=== PATIENT | male | born 1935 | race Caucasian/White ===

== ENCOUNTER 2018-02-24 09:08 | Inpatient (IN) | payer BC ==
[2018-02-24 09:22] LABS: ADD MAN DIFF? NO
[2018-02-24] MEDS: VANCOMYCIN 1 GM (PMX) 250 ML IVPB (09:23)
[2018-02-24] MEDS: CEFEPIME 2GM/50 ML (PMX) 50 ML IVPB (09:23)
[2018-02-24] MEDS: SODIUM CHLORIDE 0.9% 1L BAG IV* (09:23)
[2018-02-24 09:28] LABS: WHITE BLOOD COUNT 9.8 10^3/ul (4.8-10.8)
[2018-02-24 09:28] LABS: BASOPHIL # 0.1 10^3/ul (0.0-0.1); BASOPHILS % 0.5 % (0.0-2.0); EOSINOPHILS # 0.1 10^3/ul (0.0-0.5); EOSINOPHILS % 0.6 % (0.0-7.0); HEMATOCRIT 40.7 % (42.0-52.0); HEMOGLOBIN 13.5 g/dl (14.0-18.0); LYMPHOCYTES % 9.9 % (15.0-51.0); MEAN CORPUSCULAR HGB CONC 33.2 g/dl (32.0-37.0); MEAN CORPUSCULAR VOLUME 93.3 fl (82.0-101.0); MEAN PLATELET VOLUME 10.7 fl (7.4-10.4); MONOCYTE # 1.1 10^3/ul (0.3-0.9); MONOCYTES % 10.9 % (0.0-11.0); NEUTROPHIL # 7.6 10^3/ul (1.6-7.5); NEUTROPHILS % 77.8 % (39.0-77.0); PLATELET COUNT 173 10^3/UL (140-415); RED BLOOD COUNT 4.36 10^6/ul (4.70-6.10); RED CELL DISTRIBUTION WIDTH 12.4 % (11.5-14.5)
[2018-02-24 09:42] LABS: ALANINE AMINOTRANSFERASE 24 IU/L (13-69); ALBUMIN/GLOBULIN RATIO 1.05; ALKALINE PHOSPHATASE 78 IU/L (42-121); AMYLASE 65 U/L (11-123); ANION GAP 12 (5-13); ASPARTATE AMINO TRANSFERASE 36 IU/L (15-46); BILIRUBIN,INDIRECT 1.5 mg/dl (0-1.1); BILIRUBIN,TOTAL 1.5 mg/dl (0.2-1.3); BLOOD UREA NITROGEN 35 mg/dl (7-20); CARBON DIOXIDE 22 mmol/L (21-31); CHLORIDE 105 mmol/L (97-110); CREATININE 1.37 mg/dl (0.61-1.24); GLUCOSE 155 mg/dl (70-220); LIPASE 41 U/L (23-300); POTASSIUM 4.2 mmol/L (3.5-5.1); SODIUM 139 mmol/L (135-144); TOTAL PROTEIN 7.8 g/dl (6.1-8.1)
[2018-02-24 09:44] LABS: LACTIC ACID 2.2 mmol/L (0.5-2.0)
[2018-02-24 09:50] LABS: INR 1.18; PROTIME 15.2 Sec (11.9-14.9); PT RATIO 1.2
[2018-02-24 09:51] LABS: PARTIAL THROMBOPLASTIN TIME 32.8 Sec (23.0-35.0)
[2018-02-24 09:53] LABS: TROPONIN-I 0.018 ng/ml (0.000-0.120)
[2018-02-24] MEDS: ALBUTEROL 0.083% (NEB) 2.5 MG/3 ML AMP NEB ×2 (09:53→12:34)
[2018-02-24] MEDS: IPRATROPIUM (NEB) 0.5 MG/2.5 ML AMP NEB ×3 (09:53→20:12)
[2018-02-24] MEDS: BENZONATATE 100 MG CAP PO (10:06)
[2018-02-24] MEDS: ACETAMINOPHEN 500 MG TAB PO (10:38)
[2018-02-24] MEDS: IBUPROFEN 800 MG TAB PO (10:38)
[2018-02-24] MEDS ORDERED: NACL 0.9% 3 ML SYG IV (12:30)
[2018-02-24] MEDS ORDERED: ACETAMINOPHEN 325 MG TAB PO (12:30)
[2018-02-24] MEDS ORDERED: MAGNESIUM HYDROXIDE 30ML CUP PO (12:30)
[2018-02-24] MEDS ORDERED: ONDANSETRON 4 MG INJ IV ×2 (12:30)
[2018-02-24] MEDS: GUAIFENESIN/DM (SR) TAB PO ×2 (13:00→22:38)
[2018-02-24] MEDS: ARTIFICIAL TEARS 15 ML OPH BOTH EYES (13:46)
[2018-02-24] MEDS: SOD CHLORIDE 0.9% 1,000 ML IV (13:46)
[2018-02-24 14:40] LABS: LACTIC ACID 2.8 mmol/L (0.5-2.0)
[2018-02-24] MEDS: ALBUTEROL 0.083% (NEB) 2.5 MG/3 ML AMP HHN ×2 (14:40→20:12)
[2018-02-24 18:15] LABS: LACTIC ACID 3.1 mmol/L (0.5-2.0)
[2018-02-24] MEDS: AZITHROMYCIN 500 MG in SOD CHLORIDE 0.9% 250 ML IVPB (18:25)
[2018-02-24] MEDS: ATORVASTATIN 20 MG TAB PO (22:38)
[2018-02-24] MEDS: DOXAZOSIN 4 MG TAB PO (22:39)
[2018-02-24] MEDS: SOD CHLORIDE 0.9% 500 ML IV (22:39)
[2018-02-25] MEDS: CEFEPIME 2GM/50 ML (PMX) 50 ML IVPB ×3 (00:37→21:17)
[2018-02-25] MEDS: SOD CHLORIDE 0.9% 1,000 ML IV ×2 (01:30→14:31)
[2018-02-25 06:21] LABS: LACTIC ACID 0.9 mmol/L (0.5-2.0)
[2018-02-25 08:20] LABS: ADD MAN DIFF? NO
[2018-02-25 08:23] LABS: WHITE BLOOD COUNT 7.5 10^3/ul (4.8-10.8)
[2018-02-25 08:23] LABS: BASOPHILS % 0.3 % (0.0-2.0); EOSINOPHILS # 0.2 10^3/ul (0.0-0.5); EOSINOPHILS % 2.1 % (0.0-7.0); HEMATOCRIT 36.1 % (42.0-52.0); HEMOGLOBIN 11.8 g/dl (14.0-18.0); LYMPHOCYTES # 0.8 10^3/ul (0.8-2.9); LYMPHOCYTES % 10.7 % (15.0-51.0); MEAN CORPUSCULAR HGB CONC 32.7 g/dl (32.0-37.0); MEAN CORPUSCULAR VOLUME 94.8 fl (82.0-101.0); MEAN PLATELET VOLUME 10.9 fl (7.4-10.4); MONOCYTE # 0.7 10^3/ul (0.3-0.9); MONOCYTES % 9.4 % (0.0-11.0); NEUTROPHIL # 5.8 10^3/ul (1.6-7.5); NEUTROPHILS % 77.1 % (39.0-77.0); PLATELET COUNT 163 10^3/UL (140-415); RED BLOOD COUNT 3.81 10^6/ul (4.70-6.10); RED CELL DISTRIBUTION WIDTH 12.6 % (11.5-14.5)
[2018-02-25 08:42] LABS: ANION GAP 7 (5-13); BLOOD UREA NITROGEN 25 mg/dl (7-20); CALCIUM 8.3 mg/dl (8.4-10.2); CARBON DIOXIDE 22 mmol/L (21-31); CHLORIDE 113 mmol/L (97-110); CREATININE 0.87 mg/dl (0.61-1.24); GLUCOSE 97 mg/dl (70-220); SODIUM 142 mmol/L (135-144)
[2018-02-25] MEDS: BENZONATATE 100 MG CAP PO (08:54)
[2018-02-25] MEDS: AZITHROMYCIN 250 MG TAB PO (08:54)
[2018-02-25] MEDS: ASPIRIN (EC) 81 MG TAB PO (08:54)
[2018-02-25] MEDS: GUAIFENESIN/DM (SR) TAB PO ×2 (08:54→21:04)
[2018-02-25] MEDS: ALBUTEROL 0.083% (NEB) 2.5 MG/3 ML AMP HHN ×3 (09:10→19:37)
[2018-02-25] MEDS: ENOXAPARIN 30 MG/0.3 ML SYG SC (09:22)
[2018-02-25] MEDS: ARTIFICIAL TEARS 15 ML OPH BOTH EYES (14:31)
[2018-02-25] MEDS: FINASTERIDE 5 MG TAB PO (14:31)
[2018-02-25] MEDS ORDERED: TAMSULOSIN (SR) 0.4 MG CAP PO (21:00)
[2018-02-25] MEDS: ATORVASTATIN 20 MG TAB PO (21:04)
[2018-02-25] MEDS: DOXAZOSIN 4 MG TAB PO (21:04)
[2018-02-25] MEDS: CEPASTAT LOZENGE MT (21:04)
[2018-02-26] MEDS: DOCUSATE SODIUM 100 MG CAP PO ×2 (00:13→21:49)
[2018-02-26] MEDS: GUAIFENESIN/DM 5ML CUP PO (00:23)
[2018-02-26 05:06] LABS: ADD MAN DIFF? NO
[2018-02-26 05:11] LABS: BASOPHILS % 0.4 % (0.0-2.0); EOSINOPHILS # 0.3 10^3/ul (0.0-0.5); HEMATOCRIT 37.6 % (42.0-52.0); HEMOGLOBIN 12.5 g/dl (14.0-18.0); LYMPHOCYTES # 0.9 10^3/ul (0.8-2.9); MEAN CORPUSCULAR HEMOGLOBIN 30.9 pg (29.0-33.0); MEAN CORPUSCULAR HGB CONC 33.2 g/dl (32.0-37.0); MEAN CORPUSCULAR VOLUME 92.8 fl (82.0-101.0); MEAN PLATELET VOLUME 10.7 fl (7.4-10.4); MONOCYTE # 0.8 10^3/ul (0.3-0.9); MONOCYTES % 7.8 % (0.0-11.0); NEUTROPHIL # 7.6 10^3/ul (1.6-7.5); PLATELET COUNT 185 10^3/UL (140-415); RED BLOOD COUNT 4.05 10^6/ul (4.70-6.10); RED CELL DISTRIBUTION WIDTH 12.5 % (11.5-14.5)
[2018-02-26 05:11] LABS: WHITE BLOOD COUNT 9.6 10^3/ul (4.8-10.8)
[2018-02-26 05:44] LABS: ANION GAP 7 (5-13); BLOOD UREA NITROGEN 17 mg/dl (7-20); CALCIUM 8.6 mg/dl (8.4-10.2); CARBON DIOXIDE 22 mmol/L (21-31); CHLORIDE 112 mmol/L (97-110); CREATININE 0.79 mg/dl (0.61-1.24); GLUCOSE 118 mg/dl (70-220); POTASSIUM 4.1 mmol/L (3.5-5.1); SODIUM 141 mmol/L (135-144)
[2018-02-26] MEDS: CEPASTAT LOZENGE MT ×2 (06:14→15:31)
[2018-02-26] MEDS: BENZONATATE 100 MG CAP PO ×2 (06:17→15:31)
[2018-02-26] MEDS: ALBUTEROL 0.083% (NEB) 2.5 MG/3 ML AMP HHN ×3 (07:44→19:47)
[2018-02-26] MEDS: ASPIRIN (EC) 81 MG TAB PO (09:12)
[2018-02-26] MEDS: FINASTERIDE 5 MG TAB PO (09:12)
[2018-02-26] MEDS: GUAIFENESIN/DM (SR) TAB PO ×2 (09:12→21:49)
[2018-02-26] MEDS: ENOXAPARIN 30 MG/0.3 ML SYG SC (09:29)
[2018-02-26] MEDS: CEFEPIME 2GM/50 ML (PMX) 50 ML IVPB ×2 (09:33→21:49)
[2018-02-26] MEDS: ARTIFICIAL TEARS 15 ML OPH BOTH EYES (15:04)
[2018-02-26] MEDS ORDERED: CIPROFLOXACIN 0.3% 2.5 ML OPH BOTH EYES (21:00)
[2018-02-26] MEDS: ATORVASTATIN 20 MG TAB PO (21:49)
[2018-02-26] MEDS: DOXAZOSIN 4 MG TAB PO (21:50)
[2018-02-27] MEDS: CIPROFLOXACIN 0.3% 5 ML OPH BOTH EYES ×6 (00:12→21:33)
[2018-02-27 05:35] LABS: ADD MAN DIFF? NO
[2018-02-27 05:41] LABS: BASOPHILS % 0.5 % (0.0-2.0); EOSINOPHILS # 0.3 10^3/ul (0.0-0.5); EOSINOPHILS % 3.8 % (0.0-7.0); HEMATOCRIT 36.1 % (42.0-52.0); LYMPHOCYTES # 1.2 10^3/ul (0.8-2.9); MEAN CORPUSCULAR HEMOGLOBIN 30.6 pg (29.0-33.0); MEAN CORPUSCULAR HGB CONC 33.2 g/dl (32.0-37.0); MEAN CORPUSCULAR VOLUME 92.1 fl (82.0-101.0); MEAN PLATELET VOLUME 11.6 fl (7.4-10.4); MONOCYTE # 0.7 10^3/ul (0.3-0.9); NEUTROPHIL # 6.2 10^3/ul (1.6-7.5); NEUTROPHILS % 72.9 % (39.0-77.0); PLATELET COUNT 187 10^3/UL (140-415); RED BLOOD COUNT 3.92 10^6/ul (4.70-6.10); RED CELL DISTRIBUTION WIDTH 12.9 % (11.5-14.5)
[2018-02-27 05:41] LABS: WHITE BLOOD COUNT 8.5 10^3/ul (4.8-10.8)
[2018-02-27 06:01] LABS: ANION GAP 7 (5-13); BLOOD UREA NITROGEN 15 mg/dl (7-20); CALCIUM 8.6 mg/dl (8.4-10.2); CARBON DIOXIDE 25 mmol/L (21-31); CHLORIDE 109 mmol/L (97-110); CREATININE 0.75 mg/dl (0.61-1.24); GLUCOSE 107 mg/dl (70-220); POTASSIUM 3.6 mmol/L (3.5-5.1); SODIUM 141 mmol/L (135-144)
[2018-02-27] MEDS: ALBUTEROL 0.083% (NEB) 2.5 MG/3 ML AMP HHN ×3 (08:00→23:39)
[2018-02-27] MEDS: GUAIFENESIN/DM (SR) TAB PO ×2 (08:51→21:32)
[2018-02-27] MEDS: FINASTERIDE 5 MG TAB PO (08:51)
[2018-02-27] MEDS: ASPIRIN (EC) 81 MG TAB PO (08:51)
[2018-02-27] MEDS: ENOXAPARIN 30 MG/0.3 ML SYG SC (08:59)
[2018-02-27] MEDS: CEPASTAT LOZENGE MT (09:05)
[2018-02-27] MEDS: BENZONATATE 100 MG CAP PO ×2 (09:05→16:43)
[2018-02-27] MEDS: CEFEPIME 2GM/50 ML (PMX) 50 ML IVPB ×2 (09:06→21:33)
[2018-02-27] MEDS: ARTIFICIAL TEARS 15 ML OPH BOTH EYES (14:06)
[2018-02-27] MEDS ORDERED: ALBUTEROL/IPRATROPIUM (NEB) 3 ML AMP HHN (18:00)
[2018-02-27] MEDS: ATORVASTATIN 20 MG TAB PO (21:32)
[2018-02-27] MEDS: DOXAZOSIN 4 MG TAB PO (21:32)
[2018-02-27] MEDS: IPRATROPIUM (NEB) 0.5 MG/2.5 ML AMP NEB (23:39)
[2018-02-28] MEDS: CIPROFLOXACIN 0.3% 5 ML OPH BOTH EYES ×5 (01:33→17:29)
[2018-02-28] MEDS: ACETAMINOPHEN 325 MG TAB PO ×2 (03:39→14:49)
[2018-02-28 05:54] LABS: ADD MAN DIFF? NO
[2018-02-28 05:58] LABS: BASOPHILS % 0.5 % (0.0-2.0); EOSINOPHILS # 0.1 10^3/ul (0.0-0.5); HEMATOCRIT 35.3 % (42.0-52.0); HEMOGLOBIN 11.7 g/dl (14.0-18.0); LYMPHOCYTES % 11.1 % (15.0-51.0); MEAN CORPUSCULAR HEMOGLOBIN 30.5 pg (29.0-33.0); MEAN CORPUSCULAR HGB CONC 33.1 g/dl (32.0-37.0); MEAN CORPUSCULAR VOLUME 91.9 fl (82.0-101.0); MEAN PLATELET VOLUME 11.1 fl (7.4-10.4); MONOCYTE # 0.6 10^3/ul (0.3-0.9); MONOCYTES % 6.4 % (0.0-11.0); NEUTROPHIL # 6.9 10^3/ul (1.6-7.5); NEUTROPHILS % 79.8 % (39.0-77.0); PLATELET COUNT 205 10^3/UL (140-415); RED BLOOD COUNT 3.84 10^6/ul (4.70-6.10); RED CELL DISTRIBUTION WIDTH 12.8 % (11.5-14.5)
[2018-02-28 05:58] LABS: WHITE BLOOD COUNT 8.6 10^3/ul (4.8-10.8)
[2018-02-28 06:48] LABS: ANION GAP 8 (5-13); BLOOD UREA NITROGEN 25 mg/dl (7-20); CALCIUM 8.5 mg/dl (8.4-10.2); CARBON DIOXIDE 24 mmol/L (21-31); CHLORIDE 107 mmol/L (97-110); GLUCOSE 132 mg/dl (70-220); SODIUM 139 mmol/L (135-144)
[2018-02-28] MEDS: GUAIFENESIN/DM (SR) TAB PO (09:28)
[2018-02-28] MEDS: FINASTERIDE 5 MG TAB PO (09:28)
[2018-02-28] MEDS: ASPIRIN (EC) 81 MG TAB PO (09:28)
[2018-02-28] MEDS: CEFEPIME 2GM/50 ML (PMX) 50 ML IVPB (09:28)
[2018-02-28] MEDS: FLUTICASONE/VILANTEROL 100-25 INH (09:29)
[2018-02-28] MEDS: ALBUTEROL 0.083% (NEB) 2.5 MG/3 ML AMP HHN ×2 (09:46→16:36)
[2018-02-28] MEDS: ENOXAPARIN 30 MG/0.3 ML SYG SC (09:49)
[2018-02-28] MEDS: IPRATROPIUM (NEB) 0.5 MG/2.5 ML AMP NEB ×2 (13:25→16:36)
[2018-02-28] MEDS: ARTIFICIAL TEARS 15 ML OPH BOTH EYES (13:42)
== END 2018-02-28 18:25 | disposition home health service (06) | DRG 871 ==
LOC: E/R 09:08 → 6WM 12:10
PROVIDERS: Hospitalist
DX: A41.9 Sepsis, unspecified organism (principal); J18.9 Pneumonia, unspecified organism; E87.2 Acidosis; N13.8 Other obstructive and reflux uropathy; J44.0 Chronic obstructive pulmonary disease with (acute) lower respiratory infection; N40.1 Benign prostatic hyperplasia with lower urinary tract symptoms; R33.8 Other retention of urine; J84.10 Pulmonary fibrosis, unspecified; I10 Essential (primary) hypertension; E78.5 Hyperlipidemia, unspecified; Z87.891 Personal history of nicotine dependence; G47.33 Obstructive sleep apnea (adult) (pediatric)
CPT/HCPCS: 71045; 71250; 80048; 80053; 82150; 83605; 83690; 83735; 84484; 85025; 85610; 85730; 87040; 93005; 94640; 94664; 96365; 96366; 96375; 99291-25

== ENCOUNTER 2018-03-11 09:21 | Emergency (ER) | payer BC ==
[2018-03-11 10:02] LABS: ADD MAN DIFF? NO
[2018-03-11 10:04] LABS: WHITE BLOOD COUNT 6.8 10^3/ul (4.8-10.8)
[2018-03-11 10:04] LABS: BASOPHIL # 0.1 10^3/ul (0.0-0.1); BASOPHILS % 0.7 % (0.0-2.0); EOSINOPHILS # 0.2 10^3/ul (0.0-0.5); EOSINOPHILS % 3.2 % (0.0-7.0); HEMATOCRIT 36.8 % (42.0-52.0); LYMPHOCYTES # 1.3 10^3/ul (0.8-2.9); LYMPHOCYTES % 18.6 % (15.0-51.0); MEAN CORPUSCULAR HEMOGLOBIN 30.6 pg (29.0-33.0); MEAN CORPUSCULAR HGB CONC 32.6 g/dl (32.0-37.0); MEAN CORPUSCULAR VOLUME 93.9 fl (82.0-101.0); MEAN PLATELET VOLUME 9.8 fl (7.4-10.4); MONOCYTE # 0.5 10^3/ul (0.3-0.9); NEUTROPHIL # 4.7 10^3/ul (1.6-7.5); NEUTROPHILS % 69.4 % (39.0-77.0); PLATELET COUNT 242 10^3/UL (140-415); RED BLOOD COUNT 3.92 10^6/ul (4.70-6.10)
[2018-03-11 10:08] LABS: URINE BLOOD (Dip) POC 3+ (NEGATIVE); URINE KETONES (Dip) POC 2+ (NEGATIVE); URINE LEUKOCYTE EST (Dip) POC 3+ (NEGATIVE); URINE NITRITE (Dip) POC Positive (NEGATIVE); URINE TOTAL PROTEIN POC 3+ (NEGATIVE)
[2018-03-11 10:08] LABS: URINE PH (Dip) POC 8.5 (5.0-8.5)
[2018-03-11 10:23] LABS: PROTIME 13.3 Sec (11.9-14.9)
[2018-03-11 10:29] LABS: ANION GAP 5 (5-13); BLOOD UREA NITROGEN 24 mg/dl (7-20); CALCIUM 8.9 mg/dl (8.4-10.2); CARBON DIOXIDE 29 mmol/L (21-31); CHLORIDE 108 mmol/L (97-110); CREATININE 0.89 mg/dl (0.61-1.24); GLUCOSE 113 mg/dl (70-220); POTASSIUM 4.4 mmol/L (3.5-5.1); SODIUM 142 mmol/L (135-144)
[2018-03-11 10:43] LABS: ADD UMIC YES; UR ASCORBIC ACID NEGATIVE (NEGATIVE); UR BILIRUBIN (Dip) NEGATIVE (NEGATIVE); UR BLOOD (Dip) 3+ mg/dL (NEGATIVE); UR CLARITY TURBID (CLEAR); UR COLOR RED (YELLOW); UR GLUCOSE (Dip) 1+ mg/dL (NEGATIVE); UR KETONES (Dip) TRACE mg/dL (NEGATIVE); UR LEUKOCYTE ESTERASE (Dip) NEGATIVE Leu/ul (NEGATIVE); UR NITRITE (Dip) NEGATIVE (NEGATIVE); UR TOTAL PROTEIN (Dip) 3+ mg/dl (NEGATIVE); UR UROBILINOGEN (Dip) NEGATIVE (NEGATIVE)
[2018-03-11 10:50] LABS: URINE RBCS >200 /HPF (0)
== END 2018-03-11 11:02 | disposition home or self-care (01) ==
LOC: E/R 11:02
DX: T83.098A Other mechanical complication of other urinary catheter, initial encounter (principal); I71.4 Abdominal aortic aneurysm, without rupture; N39.0 Urinary tract infection, site not specified; I10 Essential (primary) hypertension; J44.9 Chronic obstructive pulmonary disease, unspecified; Y73.2 Prosthetic and other implants, materials and accessory gastroenterology and urology devices associated with adverse incidents; Z79.82 Long term (current) use of aspirin
CPT/HCPCS: 74176; 80048; 81001; 81003; 85025; 85610; 99284-25

== ENCOUNTER 2018-03-17 10:30 | Emergency (ER) | payer BC | END 2018-03-17 13:18 | disposition home or self-care (01) | LOC: E/R 10:30 | DX: R33.9 Retention of urine, unspecified (principal); I10 Essential (primary) hypertension; J44.9 Chronic obstructive pulmonary disease, unspecified; Z87.891 Personal history of nicotine dependence; Z79.82 Long term (current) use of aspirin | CPT/HCPCS: 51702; 99283-25 ==

== ENCOUNTER 2018-04-06 21:41 | Emergency (ER) | payer BC ==
[2018-04-07 00:22] LABS: ADD UMIC YES; UR ASCORBIC ACID 40 mg/dL (NEGATIVE); UR BACTERIA FEW /HPF (NONE SEEN); UR BILIRUBIN (Dip) NEGATIVE (NEGATIVE); UR BLOOD (Dip) 3+ mg/dL (NEGATIVE); UR BUDDING YEAST FEW /HPF (NONE SEEN); UR CLARITY CLOUDY (CLEAR); UR COLOR YELLOW (YELLOW); UR GLUCOSE (Dip) NEGATIVE (NEGATIVE); UR KETONES (Dip) TRACE mg/dL (NEGATIVE); UR LEUKOCYTE ESTERASE (Dip) 3+ Leu/ul (NEGATIVE); UR MUCUS FEW /HPF (NONE SEEN); UR NITRITE (Dip) POSITIVE (NEGATIVE); UR NONSQUAMOUS EPITHELIAL CELL 1 /HPF (NONE SEEN); UR RBC > 182 /HPF (0-5); UR SPECIFIC GRAVITY (Dip) 1.021 (1.003-1.030); UR TOTAL PROTEIN (Dip) 2+ mg/dl (NEGATIVE); UR UROBILINOGEN (Dip) NEGATIVE (NEGATIVE); UR WBC > 182 /HPF (0-5)
[2018-04-07] MEDS: CEFTRIAXONE 1 GM/50 ML (PMX) 50 ML IVPB (01:01)
[2018-04-07 01:05] LABS: ADD MAN DIFF? NO
[2018-04-07 01:06] LABS: BASOPHILS % 0.4 % (0.0-2.0); EOSINOPHILS # 0.2 10^3/ul (0.0-0.5); EOSINOPHILS % 2.4 % (0.0-7.0); HEMATOCRIT 33.6 % (42.0-52.0); HEMOGLOBIN 11.3 g/dl (14.0-18.0); LYMPHOCYTES # 1.3 10^3/ul (0.8-2.9); LYMPHOCYTES % 16.5 % (15.0-51.0); MEAN CORPUSCULAR HEMOGLOBIN 31.3 pg (29.0-33.0); MEAN CORPUSCULAR HGB CONC 33.6 g/dl (32.0-37.0); MEAN CORPUSCULAR VOLUME 93.1 fl (82.0-101.0); MEAN PLATELET VOLUME 10.8 fl (7.4-10.4); MONOCYTE # 0.6 10^3/ul (0.3-0.9); MONOCYTES % 6.9 % (0.0-11.0); NEUTROPHIL # 5.9 10^3/ul (1.6-7.5); NEUTROPHILS % 73.6 % (39.0-77.0); PLATELET COUNT 157 10^3/UL (140-415); RED BLOOD COUNT 3.61 10^6/ul (4.70-6.10)
[2018-04-07 01:06] LABS: WHITE BLOOD COUNT 8.1 10^3/ul (4.8-10.8)
[2018-04-07 01:24] LABS: ANION GAP 10 (5-13); BLOOD UREA NITROGEN 23 mg/dl (7-20); CARBON DIOXIDE 25 mmol/L (21-31); CHLORIDE 107 mmol/L (97-110); CREATININE 0.81 mg/dl (0.61-1.24); GLUCOSE 100 mg/dl (70-220); SODIUM 142 mmol/L (135-144)
== END 2018-04-07 02:22 | disposition home or self-care (01) ==
LOC: E/R 04-07 02:22
DX: N12 Tubulo-interstitial nephritis, not specified as acute or chronic (principal); I10 Essential (primary) hypertension; J44.9 Chronic obstructive pulmonary disease, unspecified; F17.210 Nicotine dependence, cigarettes, uncomplicated; Z79.82 Long term (current) use of aspirin
CPT/HCPCS: 36415; 80048; 81001; 85025; 96374; 99284-25